=== PATIENT | male | born 1965 | race Caucasian/White ===

== ENCOUNTER → 2021-04-02 | Outpatient (CLI) | payer MEDICARE, OTHER ==
[~2021-04-02] MED LIST: GABAPENTIN800 MG PO; KLONOPIN1 MG PO; LOPRESSOR100 MG PO; PERCOCET 10-321 EACH PO; PERCOCET 5/325 T1 EA PO; SUBOXONE 8 MG-1 EACH SL; ZANAFLEX4 MG PO
== END ==
LOC: CT 03-25 10:00
DX: M79.89 Other specified soft tissue disorders (principal); M62.9 Disorder of muscle, unspecified
CPT/HCPCS: 87070; 87205; 88342; 88364; 88365